=== PATIENT | female | born 1975 | race African-American/Black ===

== ENCOUNTER 2017-06-26 14:16 | Emergency (ER) | payer OTHER ==
[~2017-06-26] VITALS: Ht 162.6 cm; Wt 98.4 kg
[~2017-06-26 14:16] MED LIST: FLAGYL 25O MG250 M1 PO; NEURONTIN100 M1 PO
[2017-06-26] MEDS ORDERED: IBUPROFEN800 M1 PO (15:22)
[2017-06-26] MEDS ORDERED: CYCLOBENZAPRINE10 M1 PO (15:22)
--- NOTE | 2017-06-26 15:22 | ED UPPER/LOWER EXTREMITY COMPL ---
History of Present Illness General Chief Complaint: Neck/Upper Back Pain/Injury Stated Complaint: RIGHT SHOULDER PAIN RADIATING TO NECK Source: patient Exam Limitations: no limitations Vital Signs & Intake/Output Vital Signs & Intake/Output Vital Signs Date Time Temp Pulse Resp B/P B/P Pulse O2 O2 Flow FiO2 Mean Ox Delivery Rate 06/26 1535 97.9 72 14 132/79 100 Room Air 06/26 1439 Room Air 06/26 1423 98.0 77 18 125/82 99 Room Air Allergies Coded Allergies: MDX - PCN (penicillin) (PCN (PENICILLIN)) (Severe, SWELLING FACE 02/04/12) Reconcile Medications Cyclobenzaprine HCl 10 MG TABLET 1 TAB PO TID SPASMS Ibuprofen 800 MG TABLET 1 TAB PO TID pain Triage Note: PT TO ED FOR R SHOULDER PAIN X 1 MONTH, STATING SHE HAS HAD TWO XRAYS DONE BUT IS FRUSTRATED "BECAUSE WHEN I WAKE UP ITS SORE". NO KNOWN INJURY, DECLINES MEDS. Triage Nurses Notes Reviewed? yes Onset: Abrupt Duration: COUPLE MONTHS Timing: recent history Severity: moderate, severe Pain/Injury Location: Right: Shoulder. No Modifying Factors: none : No Patient currently breastfeeds: No HPI: 41-year-old female comes into the emergency room for further evaluation of right shoulder pain. Symptoms of being going on for the past couple months. Hurts with certain movements. She has had a couple x-rays done as an outpatient. She has not followed up with her primary care doctor. She has not followed up with orthopedic doctor. Should x-rays done in the ER. She reports that she is still having persistent pain. She comes in for further evaluation with her daughteR. Past History Travel History Traveled to [place] past 21 day No Medical History Any Pertinent Medical History? see below for history Neurological: NONE EENT: NONE Cardiovascular: NONE Respiratory: asthma Gastrointestinal: GERD Hepatic: NONE Renal: NONE Musculoskeletal: NONE Psychiatric: NONE Endocrine: NONE Cancer(s): NONE Surgical History Surgical History: non-contributory Psychosocial History What is your primary language Citizen [place] Tobacco Use: Never used ETOH Use: denies use Illicit Drug Use: denies illicit drug use Family History Hx Contributory? No Review of Systems Review of Systems Constitutional: Reports: no symptoms. EENTM: Reports: no symptoms. Respiratory: Reports: no symptoms. Cardiovascular: Reports: no symptoms. Gastrointestinal/Abdominal: Reports: no symptoms. Genitourinary: Reports: no symptoms. Musculoskeletal: Reports: see HPI. Skin: Reports: no symptoms. Neurological/Psychological: Reports: no symptoms. Hematologic/Endocrine: Reports: no symptoms. Immunological: Reports: no symptoms. All Other Systems: Reviewed and Negative Physical Exam Physical Exam General Appearance: well developed/nourished, mild distress Head: atraumatic Eyes: Bilateral: normal appearance. Ears, Nose, Throat: normal ENT inspection, hearing grossly normal Neck: normal inspection Cardiovascular/Respiratory: no respiratory distress Back: normal inspection Shoulder Right: soft tissue tenderness, limited range of motion Elbow Right: normal range of motion Neurologic/Tendon: normal sensation, normal motor functions, normal tendon functions, responds to pain, no evidence tendon injury, no pulse deficit Skin: intact, normal color, warm/dry Progress Differential Diagnosis: dislocation, fracture, gout, septic arthritis, sprain, tendon injury, ROTATOR CUFF TENDINITIS/INJURY Plan of Care: 06/26/2017 4:21:21 PM Follow-up with outpatient orthopedic and PCP. Consider MRI. This is been a chronic issue going on for months. Do not feel repeat x-rays are necessary at this time. Departure Departure Disposition: HOME OR SELF CARE Condition: Stable Clinical Impression Primary Impression: Injury of right rotator cuff Referrals: Patient Has No Primary Care Dr (PCP/Family) Robert JERNIGAN,Gilberto Box Additional Instructions: Taking ibuprofen and Flexeril as prescribed. Follow-up with physical therapy. Follow-up for outpatient MRI of right shoulder with your PCP or orthopedic doctor. Please go over all results of today's visit with your primary care doctor. Contact your primary care doctor to let them know you were here in the emergency room. There may be nonspecific findings which may not be related to your visit today here in the emergency room but may require further evaluation and chronic monitoring by your primary care doctor. If you had a laceration today the chance of foreign body always remains. You should follow-up with your primary care doctor for recheck in 3-5 days for a wound check. If you had an x-ray done there is a chance that a fracture could have been missed on initial read and you should follow-up with your primary care doctor for repeat x-rays if symptoms persist. If your blood pressure was elevated here in the emergency room please have rechecked by [facility] primary care doctor within the next 48. If you were prescribed a narcotic here in the emergency room or any type of controlled substances you're not allowed to drive while taking this medication or operate any type of heavy machinery. Narcotics can make you feel lightheaded dizziness nausea and can cause constipation. You may need to picker feeder a stool softener. Thank you for choosing [facility] emergency room. Please return to the emergency room immediately if you have any other concerns worsening of symptoms. Departure Forms: Customer Survey General Discharge Information Prescriptions: Current Visit Scripts Ibuprofen 1 TAB PO TID #30 TAB Cyclobenzaprine HCl 1 TAB PO TID #20 TAB
[2017-06-26 15:35] VITALS: BP 132/79
== END 2017-06-26 15:35 ==
LOC: ERH 14:16
DX: S46.001A Unspecified injury of muscle(s) and tendon(s) of the rotator cuff of right shoulder, initial encounter (principal); X58.XXXA Exposure to other specified factors, initial encounter; Y92.9 Unspecified place or not applicable; Y93.9 Activity, unspecified